=== PATIENT | female | born 1995 | race American Indian/Alaskan Native ===

== ENCOUNTER 2017-06-01 19:30 | Emergency (ER) | payer SELFPAY ==
[2017-06-01 21:35] LABS: Bacteria,Urine 3+ /HPF (Negative); Bilirubin,Urine NEG (Negative); Blood,Urine NEG (Negative); Ketones,Urine NEG (Negative); Leukocyte Esterase,Urine SM (Negative); Mucus,Urine FEW /HPF; Nitrite,Urine NEG (Negative); Protein,Urine <15 mg/dL mg/dL (Negative); Urobilinogen,Urine < 2.0 mg/dL (<2.0)
[2017-06-02] MEDS ORDERED: REGLAN PO ONE (02:06)
[2017-06-02] MEDS ORDERED: BENADRYL PO ONE (02:06)
--- NOTE | 2017-06-02 02:22 | Emergency Department Report ---
ED Headache HPI - General Chief Complaint: Headache Stated Complaint: HEADACHE & BACK PAIN Time Seen by Provider: 06/02/17 01:35 - History of Present Illness Initial Comments: Patient is a 22-year-old female presents complaining of bilateral shoulder back pain that has been progressively worse this week. Patient also states she is frontal/renal, throbbing, aching headache. Patient states headache is not as worse as it was earlier she said this throbbing. Patient states urinary frequency. He denies fevers/chills/nausea/vomiting/vision/vision loss/recent trauma Quality: moderate Head Injury Location: frontal Recent Head Trauma: no recent headache/trauma Modifying Factors: improves with: rest Associated Symptoms: denies: fever/chills, loss of consciousness, nasal congestion, nasal drainage, seizures Allergies/Adverse Reactions: Allergies No Known Allergies Allergy (Unverified 06/01/17 20:05) Home Medications: Ambulatory Orders Ciprofloxacin HCl [Ciprofloxacin TAB] 500 mg PO Q12HR #14 tab 06/02/17 Cyclobenzaprine [Flexeril] 10 mg PO QHS PRN #24 tablet 06/02/17 Prochlorperazine [Compazine] 10 mg PO Q8HR #24 tablet 06/02/17 ED Review of Systems ROS: Stated complaint: HEADACHE & BACK PAIN Other details as noted in HPI Constitutional: denies: chills, fever Eyes: denies: eye pain, eye discharge, vision change ENT: denies: ear pain, throat pain, hearing loss Respiratory: denies: cough, shortness of breath, wheezing Cardiovascular: denies: chest pain, palpitations Endocrine: no symptoms reported Gastrointestinal: denies: abdominal pain, nausea, diarrhea Genitourinary: denies: urgency, dysuria, discharge Musculoskeletal: myalgia. denies: back pain, joint swelling, arthralgia Skin: denies: rash, lesions Neurological: headache. denies: weakness, paresthesias Psychiatric: denies: anxiety, depression Hematological/Lymphatic: denies: easy bleeding, easy bruising ED Past Medical Hx - Past Medical History Previous Medical History?: No - Surgical History Past Surgical History?: Yes Hx Breast Surgery: Yes Additional Surgical History: tonsillectomy - Social History Smoking Status: Never Smoker Substance Use Type: None - Medications Home Medications: Home Medications Medication Instructions Recorded Confirmed Last Taken Type Ciprofloxacin HCl [Ciprofloxacin 500 mg PO Q12HR #14 tab 06/02/17 Unknown Rx TAB] Cyclobenzaprine [Flexeril] 10 mg PO QHS PRN #24 tablet 06/02/17 Unknown Rx Prochlorperazine [Compazine] 10 mg PO Q8HR #24 tablet 06/02/17 Unknown Rx ED Physical Exam - General Limitations: No Limitations ED Course Vital Signs 06/01/17 20:05 Temperature 98.3 F Pulse Rate 76 Respiratory 14 Rate Blood Pressure 112/58 O2 Sat by Pulse 100 Oximetry Critical care attestation.: If time is entered above; I have spent that time in minutes in the direct care of this critically ill patient, excluding procedure time. ED Disposition Clinical Impression: Headache, classical migraine Qualifiers: Status migrainosus presence: without status migrainosus Intractability: not intractable Qualified Code(s): G43.109 - Migraine with aura, not intractable, without status migrainosus Disposition: TO HOME OR SELFCARE Is pt being admited?: No Does the pt Need Aspirin: No Condition: Stable Instructions: Acute Headache (ED), Migraine Headache (ED), Musculoskeletal Pain (ED), Trigger Point Pain (ED) Additional Instructions: If symptoms worsen return to ED Follow-up with referrals as given Prescriptions: Cyclobenzaprine [Flexeril] 10 mg PO QHS PRN #24 tablet PRN Reason: Muscle Spasm Ciprofloxacin HCl [Ciprofloxacin TAB] 500 mg PO Q12HR #14 tab Prochlorperazine [Compazine] 10 mg PO Q8HR #24 tablet Referrals: PRIMARY MD GAL [Primary Care Provider] - 3-5 Days LISSY PELAEZ MD [Staff Physician] - 3-5 Days [facility] [Outside] - 3-5 Days [facility] [Outside] - 3-[address] [facility] [Outside] - 3-5 Days [facility] [Outside] - 3-5 Days Forms: Accompanied Note, Work/School Release Form(ED) Time of Disposition: 02:53
[2017-06-02 03:36] VITALS: BP 102/73
== END 2017-06-02 03:10 | disposition home or self-care (01) ==
LOC: ED 19:30
DX: G43.109 Migraine with aura, not intractable, without status migrainosus (principal); M54.9 Dorsalgia, unspecified; R30.0 Dysuria
CPT/HCPCS: 81001; 81025; 99283

== ENCOUNTER 2020-04-07 21:56 | Emergency (ER) | payer MEDICAID ==
[2020-04-07 23:13] VITALS: BP 116/63
[2020-04-08] MEDS ORDERED: LIDOCAINE VISCOUS 2% 15 ML ORAL LIQD ONE (01:08)
[2020-04-08] MEDS ORDERED: LIDOCAINE VISCOUS 2% 15 ML ORAL LIQD PO ONE (01:09)
--- NOTE | 2020-04-08 01:15 | Emergency Department Report ---
ED ENT HPI - General Chief complaint: Dental/Oral Stated complaint: POST ORAL SURGERY 7DAYS AGO/PAINFUL Time Seen by Provider: 04/07/20 23:42 Source: patient Mode of arrival: Ambulatory Limitations: No Limitations - History of Present Illness MD complaint: tooth pain - Related Data Previous Rx's Medication Instructions Recorded Last Taken Type Ciprofloxacin HCl [Ciprofloxacin 500 mg PO Q12HR #14 tab 06/02/17 Unknown Rx TAB] Cyclobenzaprine [Flexeril] 10 mg PO QHS PRN #24 tablet 06/02/17 Unknown Rx Prochlorperazine [Compazine] 10 mg PO Q8HR #24 tablet 06/02/17 Unknown Rx Amoxicillin [Amoxicillin TAB] 875 mg PO BID #20 tablet 04/08/20 Unknown Rx Ketorolac [Toradol] 10 mg PO Q6H PRN #15 tablet 04/08/20 Unknown Rx Lidocaine Viscous 2% 5 ml MM Q3H PRN #120 udc 04/08/20 Unknown Rx Allergies Allergy/AdvReac Type Severity Reaction Status Date / Time No Known Allergies Allergy Unverified 06/01/17 20:05 ED Dental HPI - General Chief complaint: Dental/Oral Stated complaint: POST ORAL SURGERY 7DAYS AGO/PAINFUL Time Seen by Provider: 04/07/20 23:42 Source: patient Mode of arrival: Ambulatory Limitations: No Limitations - Related Data Previous Rx's Medication Instructions Recorded Last Taken Type Ciprofloxacin HCl [Ciprofloxacin 500 mg PO Q12HR #14 tab 06/02/17 Unknown Rx TAB] Cyclobenzaprine [Flexeril] 10 mg PO QHS PRN #24 tablet 06/02/17 Unknown Rx Prochlorperazine [Compazine] 10 mg PO Q8HR #24 tablet 06/02/17 Unknown Rx Amoxicillin [Amoxicillin TAB] 875 mg PO BID #20 tablet 04/08/20 Unknown Rx Ketorolac [Toradol] 10 mg PO Q6H PRN #15 tablet 04/08/20 Unknown Rx Lidocaine Viscous 2% 5 ml MM Q3H PRN #120 udc 04/08/20 Unknown Rx Allergies Allergy/AdvReac Type Severity Reaction Status Date / Time No Known Allergies Allergy Unverified 06/01/17 20:05 ED Review of Systems ROS: Stated complaint: POST ORAL SURGERY 7DAYS AGO/PAINFUL Other details as noted in HPI Comment: All other systems reviewed and negative ED Past Medical Hx - Past Medical History Previous Medical History?: No - Surgical History Past Surgical History?: Yes Hx Breast Surgery: Yes Additional Surgical History: tonsillectomy, [place] teeth Removed - Social History Smoking Status: Never Smoker - Medications Home Medications: Home Medications Medication Instructions Recorded Confirmed Last Taken Type Ciprofloxacin HCl [Ciprofloxacin 500 mg PO Q12HR #14 tab 06/02/17 Unknown Rx TAB] Cyclobenzaprine [Flexeril] 10 mg PO QHS PRN #24 tablet 06/02/17 Unknown Rx Prochlorperazine [Compazine] 10 mg PO Q8HR #24 tablet 06/02/17 Unknown Rx Amoxicillin [Amoxicillin TAB] 875 mg PO BID #20 tablet 04/08/20 Unknown Rx Ketorolac [Toradol] 10 mg PO Q6H PRN #15 tablet 04/08/20 Unknown Rx Lidocaine Viscous 2% 5 ml MM Q3H PRN #120 udc 04/08/20 Unknown Rx ED Physical Exam - General Limitations: No Limitations General appearance: alert, in no apparent distress - Head Head exam: Present: atraumatic, normocephalic - Eye Eye exam: Present: normal appearance - ENT ENT exam: Present: mucous membranes moist - Neck Neck exam: Present: normal inspection - Respiratory Respiratory exam: Present: normal lung sounds bilaterally. Absent: respiratory distress - Cardiovascular Cardiovascular Exam: Present: regular rate, normal rhythm. Absent: systolic murmur, diastolic murmur, rubs, gallop - GI/Abdominal GI/Abdominal exam: Present: soft, normal bowel sounds - Extremities Exam Extremities exam: Present: normal inspection - Back Exam Back exam: Present: normal inspection - Neurological Exam Neurological exam: Present: alert, oriented X3 - Psychiatric Psychiatric exam: Present: normal affect, normal mood - Skin Skin exam: Present: warm, dry, intact, normal color. Absent: rash ED Course Vital Signs 04/07/20 23:05 Temperature 98.1 F Pulse Rate 63 Respiratory 12 Rate Blood Pressure 116/63 O2 Sat by Pulse 98 Oximetry Critical care attestation.: If time is entered above; I have spent that time in minutes in the direct care of this critically ill patient, excluding procedure time. ED Disposition Disposition: DC- TO HOME OR SELFCARE Condition: Stable Instructions: Dental Caries (ED), Toothache (ED), Dry Socket (ED) Prescriptions: Amoxicillin [Amoxicillin TAB] 875 mg PO BID #20 tablet Lidocaine Viscous 2% 5 ml MM Q3H PRN #120 udc PRN Reason: Pain, Moderate (4-6) Ketorolac [Toradol] 10 mg PO Q6H PRN #15 tablet PRN Reason: Pain Referrals: [facility] [Outside] - 3-5 Days
== END 2020-04-08 01:15 | disposition home or self-care (01) ==
LOC: ED 21:56
DX: K08.89 Other specified disorders of teeth and supporting structures (principal); Z98.890 Other specified postprocedural states; Z79.899 Other long term (current) drug therapy
CPT/HCPCS: 99282